=== PATIENT | male | born 1970 | race Caucasian/White ===

== ENCOUNTER 2021-11-01 07:48 | Emergency (ER) | payer OTHER, SELFPAY ==
[2021-11-01 07:56] VITALS: BP 127/88; PULSE 90; RESP 30; TEMP 35.9; O2SAT 97; BMI 23.7
[2021-11-01] MEDS: LORazepam 2 MG/ML INJ 1 MG IV (08:03)
[2021-11-01 08:04] VITALS: PULSE 92; O2SAT 98
[2021-11-01 08:08] LABS: Add Manual Diff / Slide Review NO; Basophils Absolute Auto 0 /uL (0-100); Basophils Percent Auto 0.2 % (0-2); Eosinophils Absolute Auto 200 /uL (0-450); Eosinophils Percent Auto 2.6 % (2-4); Hematocrit 45.7 % (41-53); Hemoglobin 15.8 g/dL (13.5-17.5); Lymphocytes Absolute Auto 3200 /uL (1100-4500); Mean Corpuscular HGB Conc 34.6 % (30-36); Mean Corpuscular Hemoglobin 31.4 PG (26-34); Mean Corpuscular Volume 90.7 fL (80-100); Monocytes Absolute Auto 800 /uL (0-900); Monocytes Percent Auto 9.9 % (3-14); Neutrophils Absolute Auto 4000 /uL (1500-7000); Neutrophils Percent Auto 48.3 % (50-75); Platelet Count 273 X10^3/uL (150-400); Red Blood Cell Count 5.03 X10^6/uL (4.5-5.9); Red Cell Distribution Width 13.8 % (11.6-14.8); White Blood Cell Count 8.2 X10^3/uL (4.5-11.0)
[2021-11-01 08:13] LABS: Alanine Aminotransferase 23 IU/L (<50); Albumin 4.8 g/dL (3.5-5.0); Albumin Globulin Ratio 1.4 (1.0-2.8); Alkaline Phosphatase 58 U/L (38-126); Aspartate Aminotransferase 36 IU/L (17-59); BUN Creatinine Ratio 10.4 (6-22); Bilirubin Total 0.9 mg/dL (0.2-1.3); Blood Urea Nitrogen 11 mg/dL (9-20); Calcium 9.8 mg/dL (8.4-10.2); Carbon Dioxide 19 mmol/L (22-32); Chloride 107 mmol/L (98-107); Estimated Glomerular Filt Rate > 60.0 mL/min (>60); Globulin 3.5 g/dL (1.7-4.1); Glucose 166 mg/dL (70-100); HEMOLYSIS < 15 (0-50); Potassium 3.4 mmol/L (3.4-5.1); Sodium 139 mmol/L (137-145); Total Protein 8.3 g/dL (6.3-8.2)
[2021-11-01 08:25] LABS: Troponin I < 0.012 ng/mL (0.01-0.034)
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
[2021-11-01 08:30] VITALS: PULSE 77; O2SAT 97
[2021-11-01 08:54] LABS: COVID19 - ADMIT (NP swab/PCR) Negative (Negative)
[2021-11-01 09:00] VITALS: PULSE 86; O2SAT 96
[2021-11-01] MEDS: diazePAM 5 MG TABLET PO (09:29)
[2021-11-01] MEDS: DEXAMETHASONE 10 MG/ML VIAL IV (09:29)
[2021-11-01 09:30] VITALS: PULSE 81; RESP 17; O2SAT 98
[2021-11-01 09:51] VITALS: BP 126/79; PULSE 85; RESP 19
== END 2021-11-01 09:54 | disposition home or self-care (01) ==
PROVIDERS: Emergency Provider Emergency Medicine; Family Provider Family Medicine; PCP Family Medicine
DX: F41.0 Panic disorder [episodic paroxysmal anxiety] (principal); M54.42 Lumbago with sciatica, left side; R00.0 Tachycardia, unspecified; Z20.822 Contact with and (suspected) exposure to COVID-19
CPT/HCPCS: 36415; 80053; 84484; 85025; 87635; 93005; 96374; 96375; 99284; C9803; J1100; J2060

== ENCOUNTER → 2021-12-14 08:00 | Outpatient (CLI) | payer OTHER, SELFPAY ==
[2021-12-14 08:31] LABS: Add Manual Diff / Slide Review NO; Basophils Absolute Auto 100 /uL (0-100); Basophils Percent Auto 1.2 % (0-2); Eosinophils Absolute Auto 100 /uL (0-450); Eosinophils Percent Auto 1.8 % (2-4); Hematocrit 44.8 % (41-53); Hemoglobin 15.7 g/dL (13.5-17.5); Lymphocytes Absolute Auto 1700 /uL (1100-4500); Lymphocytes Percent Auto 30.8 % (25-40); Mean Corpuscular HGB Conc 35.1 % (30-36); Mean Corpuscular Hemoglobin 31.5 PG (26-34); Mean Corpuscular Volume 89.6 fL (80-100); Monocytes Absolute Auto 500 /uL (0-900); Monocytes Percent Auto 9.4 % (3-14); Neutrophils Absolute Auto 3200 /uL (1500-7000); Neutrophils Percent Auto 56.8 % (50-75); Platelet Count 210 X10^3/uL (150-400); Red Blood Cell Count 4.99 X10^6/uL (4.5-5.9); Red Cell Distribution Width 13.3 % (11.6-14.8); White Blood Cell Count 5.6 X10^3/uL (4.5-11.0)
[2021-12-14 08:35] LABS: Cholesterol 262 mg/dL (140-199); HDL Cholesterol 50 mg/dL (40-60); LDL Cholesterol Calculated 192 mg/dL (<100); Triglycerides 98 mg/dL (35-150)
[2021-12-14 08:44] LABS: Erythrocyte Sedimentation Rate 1 MM/HR (0-15)
[2021-12-14 08:52] LABS: Vitamin D 25 Hydroxy (D3) 35.5 ng/mL (30.0-100.0)
[2021-12-14 08:54] LABS: Free T3, Triiodothyronine Free 3.24 pg/mL (2.77-5.27); Free T4, Direct Thyroxine 0.91 ng/dL (0.78-2.19)
[2021-12-14 09:06] LABS: Carcinoembryonic Antigen 1.6 ng/mL (0.1-3.0)
[2021-12-14 09:08] LABS: Thyroid Stimulating Hormone 4.14 uIU/mL (0.47-4.68)
[2021-12-14 09:25] LABS: Vitamin B12 464 pg/mL (239-931)
[2021-12-15 07:08] LABS: Homocysteine 14.5 umol/L (0.0-14.5)
== END ==
PROVIDERS: Family Provider Family Medicine; PCP Family Medicine; Referring Provider Family Medicine; Visit Provider Family Medicine
DX: M25.50 Pain in unspecified joint (principal); Z13.220 Encounter for screening for lipoid disorders
CPT/HCPCS: 36415; 80061; 82306; 82378; 82607; 83090; 84439; 84443; 84481; 85025; 85651

== ENCOUNTER → 2022-01-27 10:36 | Outpatient (CLI) | payer OTHER, SELFPAY ==
--- NOTE | 2022-01-27 10:37 | DI.RAD.S_ITS ---
PROCEDURE: XR LUMBAR SPINE MIN 4V INDICATIONS: BACK PAIN TECHNIQUE: 5 views of the lumbar spine were acquired, including bilateral oblique views. COMPARISON: None. FINDINGS: Bones: 5 nonrib-bearing vertebrae are present. 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 Non rudimentary S1-S2 disc. There is normal bony alignment. No vertebral body compression fractures. No suspicious bony lesions. Mild degenerative disc changes noted throughout the lumbar spine. Mild L3-L4, L4-L5 and L5-S1 facet arthropathy. Soft tissues: Overlying bowel gas pattern is normal. No suspicious soft tissue calcifications. Oblique images: No pars defects. IMPRESSION: 1. Multilevel degenerative disc disease. 2. Multilevel facet arthropathy. 3. No fracture. No acute osseous lesion. If symptoms and/or clinical suspicion for pathology persists, evaluation with MRI should be considered for further assessment. Dictated by: Hanna Arreola MD, PhD on 01/27/2022 at 13:25 Approved by: Hanna Arreola MD, PhD on 01/27/2022 at 13:27
== END ==
PROVIDERS: Family Provider Family Medicine; PCP Family Medicine; Referring Provider Physical Medicine & Rehabilitation; Visit Provider Physical Medicine & Rehabilitation
DX: M51.36 Other intervertebral disc degeneration, lumbar region (principal); M47.816 Spondylosis without myelopathy or radiculopathy, lumbar region; M47.817 Spondylosis without myelopathy or radiculopathy, lumbosacral region; M54.50 Low back pain, unspecified
CPT/HCPCS: 72110

== ENCOUNTER 2022-04-21 09:00 | Outpatient (RCR) | payer OTHER, SELFPAY ==
--- NOTE | 2022-03-23 12:00 | PT.OIE ---
Current Diagnoses Lesion of sciatic nerve, left lower limb (03/23/22) Sciatica, left side (03/23/22) Low back pain, unspecified (03/23/22) Visit Care Team Role Provider Type Maria Guadalupe Crawford MD Attending Provider Physician Family Provider Primary Care Provider Referring Provider Specialty: Family Practice Address: [address] [place] [address], [id number] Email: [email or web address] Physical Therapy Initial Evaluation PT-OP-A Visit Information Start: 03/23/22 10:41 Freq: Status: Active Protocol: Document 03/23/22 09:45 DCW (Rec: 03/23/22 10:42 DCW [id number]) Out-Patient Physical Therapy Visit Information Visit Information Visit Type Initial Evaluation Visit Start Time 09:45 Visit Stop Time 10:30 Total Visit Minutes 45 Visit Number 1 Number of GOLF CADDY Visits 0 Evaluation Information Evaluation Date 03/23/22 PT-OP-B Current Condition Start: 03/23/22 10:41 Freq: Status: Active Protocol: Document 03/23/22 09:45 DCW (Rec: 03/23/22 11:04 DCW [id number]) Current Condition History of Current Condition Onset Date 11/01/21 Current Complaints Left LE radicular pain, tingling, weakness History of Current Condition Pt is a 51 year old male presenting to skilled therapy with a 4.5 month history of radicular left leg pain. Pt reports he woke up 11/01/21 with intense pain in posterior hip radiating down his left leg. Pain worsened until pt was able to get to the ED, where he was mainly treated for a pain attack he began having due to the severe pain. S?ce that time, he has been experiencing numbness and tingling in his left foot, mainly around the ball of his foot and his toes, as well as pain along his lateral left calf, and his left posterior hip. Pt reports his left butt sags more now, and he is noticing decreased left LE muscle tone. Pt reports he becomes more uncomfortable with extended sitting or standing, and his usual shoes have been much more uncomfortable recently on his left foot. Notes his insurance has so far denied MRI requests. Prior Treatments and Tests Lumbar x-ray: IMPRESSION: 1. Multilevel degenerative disc disease. 2. Multilevel facet arthropathy. 3. No fracture. No acute osseous lesion. If symptoms and/or clinical suspicion for pathology persists, evaluation with MRI should be considered for further assessment. per Hanna Arreola MD, PhD on 01/27/2022 Treatment Goals Patient/Caregiver Goals Decrease numbness/tingling and improve muscle tone PT-OP-C Subjective Start: 03/23/22 10:41 Freq: Status: Active Protocol: Document 03/23/22 09:45 DCW (Rec: 03/23/22 11:04 DCW [id number]) OP-PT Subjective Patient Comments Patient Comments I've had some general low back pain in the past, but nothing like this. Patient Questionnaires Oswestry Low Back Index Oswestry Score 10/50 = 20% OP-PT Pain Assessment Pain Assessment Grid Paper Pain Assessment Grid Completed Yes Location Left Posterior Hip Intensity 4 Description Radiating,Tingling Radiating Location Radiates down to lateral thigh /calf (2/10) and toes (6/10) PT-OP-F Manual Assessment Start: 03/23/22 10:41 Freq: Status: Active Protocol: Document 03/23/22 09:45 DCW (Rec: 03/23/22 11:04 DCW [id number]) Manual Assessments Soft Tissue Assessment Soft Tissue Mobility Assessment Severe tone left piriformis with tenderness to palpation 3 /4: wincing and withdraw. Moderate tone left fibularis with tenderness to palpation 2 /4: pain with wincing. Joint Mobility Assessment Joint Mobility Assessment No notable deficiencies with joint mobility of lumbar spine or bilateral hips PT-OP-H Neuro Start: 03/23/22 11:04 Freq: Status: Active Protocol: Document 03/23/22 09:45 DCW (Rec: 03/23/22 11:06 DCW [id number]) Sensation Evaluation Gross Sensation Gross Sensation Left LE Impaired Sensation Description Tingling,Pins & [place] Dermatome Impairments L5 Location Details Left Distal Foot Light Touch Impaired Protective Sensation Intact/Normal PT-OP-K Range of Motion Start: 03/23/22 10:41 Freq: Status: Active Protocol: Document 03/23/22 09:45 DCW (Rec: 03/23/22 10:46 DCW [id number]) Lumbar Spine Range of Motion Lumbar Spine Active Percentage Testing Position Standing Flexion 100 Extension 100 Lateral Flexion Left 100 Lateral Flexion Right 100 Comments Mild discomfort with left lateral flexion PT-OP-L Special Tests Start: 03/23/22 10:41 Freq: Status: Active Protocol: Document 03/23/22 09:45 DCW (Rec: 03/23/22 10:46 DCW [id number]) Special Tests Lumbar Spine Special Tests Straight Leg Raise Test Results Negative Standing Flexion Test Results Negative Slump Test Results Positive L Manual Traction Test Results Negative Compression Test Results Negative A-P Shearing Test Results Negative Hip Special Tests Posterior Labral Test Test Results Negative Piriformis Test Results ++++ Left JANET Test Results Negative PT-OP-M Strength Start: 03/23/22 10:41 Freq: Status: Active Protocol: Document 03/23/22 09:45 DCW (Rec: 03/23/22 10:46 DCW [id number]) Hip Strength Hip Manual Muscle Testing Right Flexion (L2) 5 Normal Abduction 5 Normal Adduction 5 Normal External Rotation 5 Normal Internal Rotation 5 Normal Left Flexion (L2) 4+ Good+ Abduction 5 Normal Adduction 5 Normal External Rotation 4 Good Internal Rotation 4+ Good+ Knee Strength Knee Manual Muscle Testing Right Flexion (S2) 5 Normal Extension (L3) 5 Normal Left Flexion (S2) 5 Normal Extension (L3) 4+ Good+ Ankle/Foot Strength Ankle and Foot Manual Muscle Testing Right Dorsiflexion (L4) 5 Normal Plantarflexion (S1) 5 Normal Left Dorsiflexion (L4) 4 Good Plantarflexion (S1) 4+ Good+ Toe Strength Toe Manual Muscle Testing Right Great Toe Flexion 5 Normal Left Great Toe Extension 4 Good PT-OP-T Assessment and Plan Start: 03/23/22 10:41 Freq: Status: Active Protocol: Document 03/23/22 09:45 DCW (Rec: 03/23/22 12:00 DCW [id number]) Physical Therapy Assessment Rehab Potential Rehabilitation Potential Good Evaluation Complexity Number of Personal Factors/Comorbidities 1-2 Number of Body Systems Impaired 3 Clinical Presentation at Evaluation Evolving Impairments Impairments Activity Tolerance,Functional Activities,Functional Mobility ,Pain,Sensation,Soft Tissue Mobility,Strength,Tone Goals Two Impairment Pt reports constant tingling/ decreased sensation in left foot Fiberline Supervisor Goal (LTG) Pt to report left foot sensation WNL for one full week to allow for improve gait and stability. LTG Duration 05/23/22 One Impairment Pt does not have an appropriate home exercise program Short Term Goal (STG) Pt to be independent and compliant with an appropriate HEP STG Duration 04/23/22 Assessment Summary Assessment Pt presents with signs and symptoms consistent with piriformis syndrome. All lumbar testing appears to be negative today, however pt has strongly positive symptoms with palpation and stretching of his left piriformis. Pt displays some general left LE weakness, notes it worsens with fatigue, and he has been catching is foot more frequently, along with his constant numbness and tingling . Reviewed piriformis stretching today for an HEP, pt should additionally benefit from skilled therapy focusing on STM, strengthening, and continued stretching of his left LE and hip. Physical Therapy Plan Frequency and Duration Frequency of Treatment 2x/Week Duration of Treatment Two months Plan of Care Start Date 03/23/22 Plan of Care End Date 05/23/22 Therapeutic Interventions Therapeutic Interventions Aquatic Therapy,Home Exercise Program,Joint Mobilizations, Manual Therapy,Neuromuscular Re-education,Patient/Caregiver Education,Self-Care/Home Management,Soft Tissue Mobilization,Therapeutic Activities,Therapeutic Exercises Modalities Cold Pack/Ice Massage,Electric Stimulation,Hot Packs, Ultrasound Next Visit Focus/Plan Next Note Type Treatment Note Next Visit Plan STM, strengthening, flexibility
--- NOTE | 2022-03-23 12:01 | PT.OPPOC ---
Physical, Occupational & Speech Therapy At [facility] Current Diagnoses Lesion of sciatic nerve, left lower limb (03/23/22) Sciatica, left side (03/23/22) Low back pain, unspecified (03/23/22) Visit Care Team Role Provider Type Maria Guadalupe Crawford MD Attending Provider Physician Family Provider Primary Care Provider Referring Provider Specialty: Family Practice Address: [address] [place] [address], [place], [address] Email: [email or web address] Plan Of Care PT-OP-T Assessment and Plan Start: 03/23/22 10:41 Freq: Status: Active Protocol: Document 03/23/22 09:45 DCW (Rec: 03/23/22 12:00 DCW [id number]) Physical Therapy Assessment Rehab Potential Rehabilitation Potential Good Evaluation Complexity Number of Personal Factors/Comorbidities 1-2 Number of Body Systems Impaired 3 Clinical Presentation at Evaluation Evolving Impairments Impairments Activity Tolerance,Functional Activities,Functional Mobility ,Pain,Sensation,Soft Tissue Mobility,Strength,Tone Goals Two Impairment Pt reports constant tingling/ decreased sensation in left foot Speedboat Operator Goal (LTG) Pt to report left foot sensation WNL for one full week to allow for improve gait and stability. LTG Duration 05/23/22 One Impairment Pt does not have an appropriate home exercise program Short Term Goal (STG) Pt to be independent and compliant with an appropriate HEP STG Duration 04/23/22 Assessment Summary Assessment Pt presents with signs and symptoms consistent with piriformis syndrome. All lumbar testing appears to be negative today, however pt has strongly positive symptoms with palpation and stretching of his left piriformis. Pt displays some general left LE weakness, notes it worsens with fatigue, and he has been catching is foot more frequently, along with his constant numbness and tingling . Reviewed piriformis stretching today for an HEP, pt should additionally benefit from skilled therapy focusing on STM, strengthening, and continued stretching of his left LE and hip. Physical Therapy Plan Frequency and Duration Frequency of Treatment 2x/Week Duration of Treatment Two months Plan of Care Start Date 03/23/22 Plan of Care End Date 05/23/22 Therapeutic Interventions Therapeutic Interventions Aquatic Therapy,Home Exercise Program,Joint Mobilizations, Manual Therapy,Neuromuscular Re-education,Patient/Caregiver Education,Self-Care/Home Management,Soft Tissue Mobilization,Therapeutic Activities,Therapeutic Exercises Modalities Cold Pack/Ice Massage,Electric Stimulation,Hot Packs, Ultrasound Next Visit Focus/Plan Next Note Type Treatment Note Next Visit Plan STM, strengthening, flexibility Plan of Care Dates Plan of Care Start Date 03/23/22 Plan of Care End Date 05/23/22 Electronically Signed by: Tye Henry, PT 03/23/22 2307 If you are in agreement with this Plan of Care, please return a signed and dated copy. I have reviewed this Plan of Care and certify that the skilled therapy services above are required to meet the patient?s needs. Physician Signature Date Printed Name and Credentials Clinical Instructor Signature Printed Name and Credentials
--- NOTE | 2022-03-30 12:25 | PT.OTN ---
Current Diagnoses Lesion of sciatic nerve, left lower limb (03/30/22) Sciatica, left side (03/30/22) Low back pain, unspecified (03/30/22) Physical Therapy Treatment Note PT-OP-A Visit Information Start: 03/23/22 10:41 Freq: Status: Active Protocol: Document 03/30/22 08:50 AW (Rec: 03/30/22 09:47 AW [id number]) Out-Patient Physical Therapy Visit Information Visit Information Visit Type Treatment Note Visit Start Time 09:00 Visit Stop Time 09:45 Total Visit Minutes 45 Visit Number 2 Number of UTILITY MANAGER Visits 0 Evaluation Information Evaluation Date 03/23/22 PT-OP-B Current Condition Start: 03/23/22 10:41 Freq: Status: Active Protocol: Document 03/23/22 09:45 DCW (Rec: 03/23/22 11:04 DCW [id number]) Current Condition History of Current Condition Onset Date 11/01/21 Current Complaints Left LE radicular pain, tingling, weakness History of Current Condition Pt is a 51 year old male presenting to skilled therapy with a 4.5 month history of radicular left leg pain. Pt reports he woke up 11/01/21 with intense pain in posterior hip radiating down his left leg. Pain worsened until pt was able to get to the ED, where he was mainly treated for a pain attack he began having due to the severe pain. S?ce that time, he has been experiencing numbness and tingling inhis left foot, mainly around the ball of his foot and his toes, as well as pain along his lateral left calf, and his left posterior hip. Pt reports his left butt sags more now, and he is noticing decreased left LE muscle tone. Pt reports he becomes more uncomfortable with extended sitting or standing, and his usual shoes have been much more uncomfortable recently on his left foot. Notes his insurance has so far denied MRI requests. Prior Treatments and Tests Lumbar x-ray: IMPRESSION: 1. Multilevel degenerative disc disease. 2. Multilevel facet arthropathy. 3. No fracture. No acute osseous lesion. If symptoms and/or clinical suspicion for pathology persists, evaluation with MRI should be considered for further assessment. per Hanna Arreola MD, PhD on 01/27/2022 Treatment Goals Patient/Caregiver Goals Decrease numbness/tingling and improve muscle tone PT-OP-C Subjective Start: 03/23/22 10:41 Freq: Status: Active Protocol: Document 03/30/22 08:50 AW (Rec: 03/30/22 09:47 AW [id number]) OP-PT Subjective Patient Comments Patient Comments I've been doing the stretches and taking a fair amount of ibuprofen which seems to help. Sometimes the stretches make the foot feel hot instead of just numb PT-OP-F Manual Assessment Start: 03/23/22 10:41 Freq: Status: Active Protocol: Document 03/23/22 09:45 DCW (Rec: 03/23/22 11:04 DCW [id number]) Manual Assessments Soft Tissue Assessment Soft Tissue Mobility Assessment Severe tone left piriformis with tenderness to palpation 3 /4: wincing and withdraw. Moderate tone left fibularis with tenderness to palpation 2 /4: pain with wincing. Joint Mobility Assessment Joint Mobility Assessment No notable deficiencies with joint mobility of lumbar spine or bilateral hips PT-OP-H Neuro Start: 03/23/22 11:04 Freq: Status: Active Protocol: Document 03/23/22 09:45 DCW (Rec: 03/23/22 11:06 DCW [id number]) Sensation Evaluation Gross Sensation Gross Sensation Left LE Impaired Sensation Description Tingling,Pins & [place] Dermatome Impairments L5 Location Details Left Distal Foot Light Touch Impaired Protective Sensation Intact/Normal PT-OP-K Range of Motion Start: 03/23/22 10:41 Freq: Status: Active Protocol: Document 03/23/22 09:45 DCW (Rec: 03/23/22 10:46 DCW [id number]) Lumbar Spine Range of Motion Lumbar Spine Active Percentage Testing Position Standing Flexion 100 Extension 100 Lateral Flexion Left 100 Lateral Flexion Right 100 Comments Mild discomfort with left lateral flexion PT-OP-L Special Tests Start: 03/23/22 10:41 Freq: Status: Active Protocol: Document 03/23/22 09:45 DCW (Rec: 03/23/22 10:46 DCW [id number]) Special Tests Lumbar Spine Special Tests Straight Leg Raise Test Results Negative Standing Flexion Test Results Negative Slump Test Results Positive L Manual Traction Test Results Negative Compression Test Results Negative A-P Shearing Test Results Negative Hip Special Tests Posterior Labral Test Test Results Negative Piriformis Test Results ++++ Left JANET Test Results Negative PT-OP-M Strength Start: 03/23/22 10:41 Freq: Status: Active Protocol: Document 03/23/22 09:45 DCW (Rec: 03/23/22 10:46 DCW [id number]) Hip Strength Hip Manual Muscle Testing Right Flexion (L2) 5 Normal Abduction 5 Normal Adduction 5 Normal External Rotation 5 Normal Internal Rotation 5 Normal Left Flexion (L2) 4+ Good+ Abduction 5 Normal Adduction 5 Normal External Rotation 4 Good Internal Rotation 4+ Good+ Knee Strength Knee Manual Muscle Testing Right Flexion (S2) 5 Normal Extension (L3) 5 Normal Left Flexion (S2) 5 Normal Extension (L3) 4+ Good+ Ankle/Foot Strength Ankle and Foot Manual Muscle Testing Right Dorsiflexion (L4) 5 Normal Plantarflexion (S1) 5 Normal Left Dorsiflexion (L4) 4 Good Plantarflexion (S1) 4+ Good+ Toe Strength Toe Manual Muscle Testing Right Great Toe Flexion 5 Normal Left Great Toe Extension 4 Good PT-OP-Q Treatments Start: 03/23/22 10:41 Freq: Status: Active Protocol: Document 03/30/22 08:50 AW (Rec: 03/30/22 09:47 AW [id number]) Cardio Equipment Recumbent Bicycle Duration (Minutes) 5 Resistance 5 Seat Position 6 Other 0 Therapeutic Exercises Supine Exercises HS stretch Supine Exercise Name HS stretch Side left Resistance manual Reps/Minutes 30 SH x 3 bridge Supine Exercise Name bridge Reps/Minutes 5SH x 10 Comments HEP SLR Supine Exercise Name SLR Side left Reps/Minutes neutral x 10; ER x 10; IR x 10 Comments HEP sciatic nerve glide Supine Exercise Name sciatic nerve glide Side left Equipment Used SLR w/ ankle pump Reps/Minutes 60' x 2 piriformis stretch Supine Exercise Name piriformis stretch Side left Resistance opp leg straight, pull knee toward R shoulder Reps/Minutes 60' x 2 Sidelying Exercises clam/reverse clam Sidelying Exercise Name reverse clam only Side left Resistance AROM Reps/Minutes 2x10 Comments HEP Manual Therapy Treatment Soft Tissue Mobilization L fibularis Body Location L fibularis Mobilization Type Rolling,Strumming Intensity/Depth Moderate Body Position Supine external rotators Body Location hip ERs Mobilization Type Rolling,Strumming,Sustained Pressure,Trigger Point Release Intensity/Depth Moderate Body Position Sidelying PT-OP-T Assessment and Plan Start: 03/23/22 10:41 Freq: Status: Active Protocol: Document 03/30/22 08:50 AW (Rec: 03/30/22 09:47 AW [id number]) Physical Therapy Assessment Goals Two Impairment Pt reports constant tingling/ decreased sensation in left foot Skilled Nursing Goal (LTG) Pt to report left foot sensation WNL for one full week to allow for improve gait and stability. LTG Duration 05/23/22 One Impairment Pt does not have an appropriate home exercise program Short Term Goal (STG) Pt to be independent and compliant with an appropriate HEP STG Duration 04/23/22 Assessment Summary Assessment Pt responds well to education and ther ex. Continued with STM, hip mobility, and gentle hip strengthening as a foundation further strength training. Physical Therapy Plan Frequency and Duration Frequency of Treatment 2x/Week Duration of Treatment Two months Plan of Care Start Date 03/23/22 Plan of Care End Date 05/23/22 Therapeutic Interventions Therapeutic Interventions Aquatic Therapy,Home Exercise Program,Joint Mobilizations, Manual Therapy,Neuromuscular Re-education,Patient/Caregiver Education,Self-Care/Home Management,Soft Tissue Mobilization,Therapeutic Activities,Therapeutic Exercises Modalities Cold Pack/Ice Massage,Electric Stimulation,Hot Packs, Ultrasound Next Visit Focus/Plan Next Note Type Treatment Note Next Visit Plan STM, strengthening (progress hip ext, IR, and abd strength) , flexibility,
--- NOTE | 2022-04-07 11:39 | PT.OTN ---
Current Diagnoses Sciatica, left side (04/07/22) Low back pain, unspecified (04/07/22) Physical Therapy Treatment Note PT-OP-A Visit Information Start: 03/23/22 10:41 Freq: Status: Active Protocol: Document 04/07/22 08:35 AW (Rec: 04/07/22 11:39 AW [id number]) Out-Patient Physical Therapy Visit Information Visit Information Visit Type Treatment Note Visit Start Time 09:45 Visit Stop Time 10:30 Total Visit Minutes 45 Visit Number 3 Number of BUSINESS ANALYTICS SPECIALIST Visits 0 Evaluation Information Evaluation Date 03/23/22 PT-OP-B Current Condition Start: 03/23/22 10:41 Freq: Status: Active Protocol: Document 03/23/22 09:45 DCW (Rec: 03/23/22 11:04 DCW [id number]) Current Condition History of Current Condition Onset Date 11/01/21 Current Complaints Left LE radicular pain, tingling, weakness History of Current Condition Pt is a 51 year old male presenting to skilled therapy with a 4.5 month history of radicular left leg pain. Pt reports he woke up 11/01/21 with intense pain in posterior hip radiating down his left leg. Pain worsened until pt was able to get to the ED, where he was mainly treated for a pain attack he began having due to the severe pain. S?ce that time, he has been experiencing numbness and tingling inhis left foot, mainly around the ball of his foot and his toes, as well as pain along his lateral left calf, and his left posterior hip. Pt reports his left butt sags more now, and he is noticing decreased left LE muscle tone. Pt reports he becomes more uncomfortable with extended sitting or standing, and his usual shoes have been much more uncomfortable recently on his left foot. Notes his insurance has so far denied MRI requests. Prior Treatments and Tests Lumbar x-ray: IMPRESSION: 1. Multilevel degenerative disc disease. 2. Multilevel facet arthropathy. 3. No fracture. No acute osseous lesion. If symptoms and/or clinical suspicion for pathology persists, evaluation with MRI should be considered for further assessment. per Hanna Arreola MD, PhD on 01/27/2022 Treatment Goals Patient/Caregiver Goals Decrease numbness/tingling and improve muscle tone PT-OP-C Subjective Start: 03/23/22 10:41 Freq: Status: Active Protocol: Document 04/07/22 08:35 AW (Rec: 04/07/22 11:39 AW [id number]) OP-PT Subjective Patient Comments Patient Comments Still having tingling in left foot. Wears slippers a lot at home. Slippers are more comfortable. Regular shoes cause more symptoms in foot even though he has worn these shoes for a long time. Going to Dr. Perez at end march. Has $60 copay and does not want to schedule more than weekly PT visits at this time. PT-OP-F Manual Assessment Start: 03/23/22 10:41 Freq: Status: Active Protocol: Document 03/23/22 09:45 DCW (Rec: 03/23/22 11:04 DCW [id number]) Manual Assessments Soft Tissue Assessment Soft Tissue Mobility Assessment Severe tone left piriformis with tenderness to palpation 3 /4: wincing and withdraw. Moderate tone left fibularis with tenderness to palpation 2 /4: pain with wincing. Joint Mobility Assessment Joint Mobility Assessment No notable deficiencies with joint mobility of lumbar spine or bilateral hips PT-OP-H Neuro Start: 03/23/22 11:04 Freq: Status: Active Protocol: Document 03/23/22 09:45 DCW (Rec: 03/23/22 11:06 DCW [id number]) Sensation Evaluation Gross Sensation Gross Sensation Left LE Impaired Sensation Description Tingling,Pins & [place] Dermatome Impairments L5 Location Details Left Distal Foot Light Touch Impaired Protective Sensation Intact/Normal PT-OP-K Range of Motion Start: 03/23/22 10:41 Freq: Status: Active Protocol: Document 03/23/22 09:45 DCW (Rec: 03/23/22 10:46 DCW [id number]) Lumbar Spine Range of Motion Lumbar Spine Active Percentage Testing Position Standing Flexion 100 Extension 100 Lateral Flexion Left 100 Lateral Flexion Right 100 Comments Mild discomfort with left lateral flexion PT-OP-L Special Tests Start: 03/23/22 10:41 Freq: Status: Active Protocol: Document 03/23/22 09:45 DCW (Rec: 03/23/22 10:46 DCW [id number]) Special Tests Lumbar Spine Special Tests Straight Leg Raise Test Results Negative Standing Flexion Test Results Negative Slump Test Results Positive L Manual Traction Test Results Negative Compression Test Results Negative A-P Shearing Test Results Negative Hip Special Tests Posterior Labral Test Test Results Negative Piriformis Test Results ++++ Left JANET Test Results Negative PT-OP-M Strength Start: 03/23/22 10:41 Freq: Status: Active Protocol: Document 03/23/22 09:45 DCW (Rec: 03/23/22 10:46 DCW [id number]) Hip Strength Hip Manual Muscle Testing Right Flexion (L2) 5 Normal Abduction 5 Normal Adduction 5 Normal External Rotation 5 Normal Internal Rotation 5 Normal Left Flexion (L2) 4+ Good+ Abduction 5 Normal Adduction 5 Normal External Rotation 4 Good Internal Rotation 4+ Good+ Knee Strength Knee Manual Muscle Testing Right Flexion (S2) 5 Normal Extension (L3) 5 Normal Left Flexion (S2) 5 Normal Extension (L3) 4+ Good+ Ankle/Foot Strength Ankle and Foot Manual Muscle Testing Right Dorsiflexion (L4) 5 Normal Plantarflexion (S1) 5 Normal Left Dorsiflexion (L4) 4 Good Plantarflexion (S1) 4+ Good+ Toe Strength Toe Manual Muscle Testing Right Great Toe Flexion 5 Normal Left Great Toe Extension 4 Good PT-OP-Q Treatments Start: 03/23/22 10:41 Freq: Status: Active Protocol: Document 04/07/22 08:35 AW (Rec: 04/07/22 11:39 AW [id number]) Cardio Equipment Recumbent Bicycle Duration (Minutes) 5 Resistance 5 Seat Position 6 Other 0 Therapeutic Exercises Supine Exercises HS stretch Supine Exercise Name HS stretch Side left Resistance with strap Reps/Minutes 30 SH x 4 Comments hip flex and add; good response; HEP sciatic nerve glide Supine Exercise Name sciatic nerve glide Side left Equipment Used SLR w/ ankle pump Reps/Minutes 60' x 2 Comments trialed in sitting but too irritating; continue with supine for HEP piriformis stretch Supine Exercise Name piriformis stretch Side left Resistance opp leg straight, pull knee toward R shoulder Reps/Minutes 60' x 2 Sidelying Exercises SL hip abduction Sidelying Exercise Name SL hip abduction Side left Resistance AROM Reps/Minutes 2x15 Comments HEP Sitting Exercises resisted inversion Sitting Exercise Name resisted inversion Side left Resistance TB1 Reps/Minutes 2x20 Comments HEP Manual Therapy Treatment Soft Tissue Mobilization L fibularis Body Location L fibularis Mobilization Type Rolling,Strumming Intensity/Depth Moderate Body Position Supine Comments With rolling pin. Educated pt to self mob at home with rolling pin as tolerated external rotators Body Location hip ERs Mobilization Type Rolling,Strumming,Sustained Pressure,Trigger Point Release Intensity/Depth Moderate Body Position Sidelying Comments Instructed pt in self-STM with tennis ball in supine or at wall. Joint Mobilizations L hip Joint L hip Comments overpressure into IR; contract /relax Self-Care/Home Management Treatment Education Patient Education Home Exercise Program Other Education Added SL hip abduction, HS stretch with strap, resisted ankle inversion. PT-OP-T Assessment and Plan Start: 03/23/22 10:41 Freq: Status: Active Protocol: Document 04/07/22 08:35 AW (Rec: 04/07/22 11:39 AW [id number]) Physical Therapy Assessment Goals Two Impairment Pt reports constant tingling/ decreased sensation in left foot Ordnance Truck Installation Supervisor Goal (LTG) Pt to report left foot sensation WNL for one full week to allow for improve gait and stability. LTG Duration 05/23/22 One Impairment Pt does not have an appropriate home exercise program Short Term Goal (STG) Pt to be independent and compliant with an appropriate HEP STG Duration 04/23/22 Assessment Summary Assessment Pt describes feeling as if his forefoot is wrapped in layers of bubble wrap. This sensation increases with plantar flexion and with eversion. Instructed pt in hamstring stretch (hip flexion + adduction) and added resisted ankle inversion for home program. Pt has barrier of $60 copay for PT and wishes to continue at once weekly for now. He will be seen by pain clinic later this month. Physical Therapy Plan Frequency and Duration Frequency of Treatment 2x/Week Duration of Treatment Two months Plan of Care Start Date 03/23/22 Plan of Care End Date 05/23/22 Therapeutic Interventions Therapeutic Interventions Aquatic Therapy,Home Exercise Program,Joint Mobilizations, Manual Therapy,Neuromuscular Re-education,Patient/Caregiver Education,Self-Care/Home Management,Soft Tissue Mobilization,Therapeutic Activities,Therapeutic Exercises Modalities Cold Pack/Ice Massage,Electric Stimulation,Hot Packs, Ultrasound Next Visit Focus/Plan Next Note Type Treatment Note Next Visit Plan STM, strengthening (progress hip ext, IR, and abd strength) , flexibility. Follow up on self-STM
--- NOTE | 2022-04-14 12:57 | PT.OTN ---
Current Diagnoses Sciatica, left side (04/14/22) Low back pain, unspecified (04/14/22) Physical Therapy Treatment Note PT-OP-A Visit Information Start: 03/23/22 10:41 Freq: Status: Active Protocol: Document 04/14/22 08:57 AW (Rec: 04/14/22 09:47 AW [id number]) Out-Patient Physical Therapy Visit Information Visit Information Visit Type Treatment Note Visit Start Time 09:00 Visit Stop Time 09:45 Total Visit Minutes 45 Visit Number 4 Number of ACUTE CARE ASSISTANT Visits 0 Evaluation Information Evaluation Date 03/23/22 PT-OP-B Current Condition Start: 03/23/22 10:41 Freq: Status: Active Protocol: Document 03/23/22 09:45 DCW (Rec: 03/23/22 11:04 DCW [id number]) Current Condition History of Current Condition Onset Date 11/01/21 Current Complaints Left LE radicular pain, tingling, weakness History of Current Condition Pt is a 51 year old male presenting to skilled therapy with a 4.5 month history of radicular left leg pain. Pt reports he woke up 11/01/21 with intense pain in posterior hip radiating down his left leg. Pain worsened until pt was able to get to the ED, where he was mainly treated for a pain attack he began having due to the severe pain. S?ce that time, he has been experiencing numbness and tingling inhis left foot, mainly around the ball of his foot and his toes, as well as pain along his lateral left calf, and his left posterior hip. Pt reports his left butt sags more now, and he is noticing decreased left LE muscle tone. Pt reports he becomes more uncomfortable with extended sitting or standing, and his usual shoes have been much more uncomfortable recently on his left foot. Notes his insurance has so far denied MRI requests. Prior Treatments and Tests Lumbar x-ray: IMPRESSION: 1. Multilevel degenerative disc disease. 2. Multilevel facet arthropathy. 3. No fracture. No acute osseous lesion. If symptoms and/or clinical suspicion for pathology persists, evaluation with MRI should be considered for further assessment. per Hanna Arreola MD, PhD on 01/27/2022 Treatment Goals Patient/Caregiver Goals Decrease numbness/tingling and improve muscle tone PT-OP-C Subjective Start: 03/23/22 10:41 Freq: Status: Active Protocol: Document 04/14/22 08:57 AW (Rec: 04/14/22 09:47 AW [id number]) OP-PT Subjective Patient Comments Patient Comments No change in symptoms. Good engagement with HEP. Has appointment with Dr. Perez next week. Sitting long periods is defintely aggravating. Moving around helps. Patient Reported Progress Same PT-OP-F Manual Assessment Start: 03/23/22 10:41 Freq: Status: Active Protocol: Document 03/23/22 09:45 DCW (Rec: 03/23/22 11:04 DCW [id number]) Manual Assessments Soft Tissue Assessment Soft Tissue Mobility Assessment Severe tone left piriformis with tenderness to palpation 3 /4: wincing and withdraw. Moderate tone left fibularis with tenderness to palpation 2 /4: pain with wincing. Joint Mobility Assessment Joint Mobility Assessment No notable deficiencies with joint mobility of lumbar spine or bilateral hips PT-OP-H Neuro Start: 03/23/22 11:04 Freq: Status: Active Protocol: Document 03/23/22 09:45 DCW (Rec: 03/23/22 11:06 DCW [id number]) Sensation Evaluation Gross Sensation Gross Sensation Left LE Impaired Sensation Description Tingling,Pins & [place] Dermatome Impairments L5 Location Details Left Distal Foot Light Touch Impaired Protective Sensation Intact/Normal PT-OP-K Range of Motion Start: 03/23/22 10:41 Freq: Status: Active Protocol: Document 03/23/22 09:45 DCW (Rec: 03/23/22 10:46 DCW [id number]) Lumbar Spine Range of Motion Lumbar Spine Active Percentage Testing Position Standing Flexion 100 Extension 100 Lateral Flexion Left 100 Lateral Flexion Right 100 Comments Mild discomfort with left lateral flexion PT-OP-L Special Tests Start: 03/23/22 10:41 Freq: Status: Active Protocol: Document 03/23/22 09:45 DCW (Rec: 03/23/22 10:46 DCW [id number]) Special Tests Lumbar Spine Special Tests Straight Leg Raise Test Results Negative Standing Flexion Test Results Negative Slump Test Results Positive L Manual Traction Test Results Negative Compression Test Results Negative A-P Shearing Test Results Negative Hip Special Tests Posterior Labral Test Test Results Negative Piriformis Test Results ++++ Left JANET Test Results Negative PT-OP-M Strength Start: 03/23/22 10:41 Freq: Status: Active Protocol: Document 03/23/22 09:45 DCW (Rec: 03/23/22 10:46 DCW [id number]) Hip Strength Hip Manual Muscle Testing Right Flexion (L2) 5 Normal Abduction 5 Normal Adduction 5 Normal External Rotation 5 Normal Internal Rotation 5 Normal Left Flexion (L2) 4+ Good+ Abduction 5 Normal Adduction 5 Normal External Rotation 4 Good Internal Rotation 4+ Good+ Knee Strength Knee Manual Muscle Testing Right Flexion (S2) 5 Normal Extension (L3) 5 Normal Left Flexion (S2) 5 Normal Extension (L3) 4+ Good+ Ankle/Foot Strength Ankle and Foot Manual Muscle Testing Right Dorsiflexion (L4) 5 Normal Plantarflexion (S1) 5 Normal Left Dorsiflexion (L4) 4 Good Plantarflexion (S1) 4+ Good+ Toe Strength Toe Manual Muscle Testing Right Great Toe Flexion 5 Normal Left Great Toe Extension 4 Good PT-OP-Q Treatments Start: 03/23/22 10:41 Freq: Status: Active Protocol: Document 04/14/22 08:57 AW (Rec: 04/14/22 09:47 AW [id number]) Cardio Equipment Recumbent Bicycle Duration (Minutes) 4 Resistance 5 Seat Position 6 Other 0 Therapeutic Exercises Supine Exercises bridge Supine Exercise Name bridge Resistance TB2 at knees Reps/Minutes 5SH x 10 Comments HEP; cued ER at end range/hold piriformis stretch Supine Exercise Name piriformis stretch Side left Resistance opp leg straight, pull knee toward R shoulder Reps/Minutes 60' x 2 Sidelying Exercises clam/reverse clam Sidelying Exercise Name clamshell Side bilateral Resistance AROM Reps/Minutes 2x15, then 30 sec holds Comments HEP Sitting Exercises HS stretch Sitting Exercise Name HS stretch Side bilateral Equipment Used with active long-axis hip rotation Reps/Minutes alternative for HEP Standing Exercises closed chain ER Standing Exercise Name closed chain ER Side left Comments clinic only Self-Care/Home Management Treatment Education Patient Education Home Exercise Program Other Education Added clam AROM and bridge with band, prone press up PT-OP-T Assessment and Plan Start: 03/23/22 10:41 Freq: Status: Active Protocol: Document 04/14/22 08:57 AW (Rec: 04/14/22 09:47 AW [id number]) Physical Therapy Assessment Goals Two Impairment Pt reports constant tingling/ decreased sensation in left foot [employer] Goal (LTG) Pt to report left foot sensation WNL for one full week to allow for improve gait and stability. LTG Duration 05/23/22 One Impairment Pt does not have an appropriate home exercise program Short Term Goal (STG) Pt to be independent and compliant with an appropriate HEP STG Duration 04/23/22 Assessment Summary Assessment Pt notes being barefoot is nearly unbearable. He is most comfortable in his worn out house shoes which offer minimal support. His symptoms have been relatively constant but are much worse with extended sitting. Today, PT switched focus from tissue length toward strength and will reassess at next visit. Physical Therapy Plan Frequency and Duration Frequency of Treatment 2x/Week Duration of Treatment Two months Plan of Care Start Date 03/23/22 Plan of Care End Date 05/23/22 Therapeutic Interventions Therapeutic Interventions Aquatic Therapy,Home Exercise Program,Joint Mobilizations, Manual Therapy,Neuromuscular Re-education,Patient/Caregiver Education,Self-Care/Home Management,Soft Tissue Mobilization,Therapeutic Activities,Therapeutic Exercises Modalities Cold Pack/Ice Massage,Electric Stimulation,Hot Packs, Ultrasound Next Visit Focus/Plan Next Note Type Treatment Note Next Visit Plan Assess response to ER strengthening. STM, strengthening (progress hip ext, rotation, and abd strength), flexibility. Follow up on self-STM
--- NOTE | 2022-04-21 11:26 | PT.OTN ---
Current Diagnoses Sciatica, left side (04/21/22) Low back pain, unspecified (04/21/22) Physical Therapy Treatment Note PT-OP-A Visit Information Start: 03/23/22 10:41 Freq: Status: Active Protocol: Document 04/21/22 08:59 AW (Rec: 04/21/22 09:46 AW [id number]) Out-Patient Physical Therapy Visit Information Visit Information Visit Type Treatment Note Visit Start Time 09:00 Visit Stop Time 09:45 Total Visit Minutes 45 Visit Number 5 Number of MANUAL ARTS THERAPIST Visits 0 Evaluation Information Evaluation Date 03/23/22 PT-OP-B Current Condition Start: 03/23/22 10:41 Freq: Status: Active Protocol: Document 03/23/22 09:45 DCW (Rec: 03/23/22 11:04 DCW [id number]) Current Condition History of Current Condition Onset Date 11/01/21 Current Complaints Left LE radicular pain, tingling, weakness History of Current Condition Pt is a 51 year old male presenting to skilled therapy with a 4.5 month history of radicular left leg pain. Pt reports he woke up 11/01/21 with intense pain in posterior hip radiating down his left leg. Pain worsened until pt was able to get to the ED, where he was mainly treated for a pain attack he began having due to the severe pain. S?ce that time, he has been experiencing numbness and tingling inhis left foot, mainly around the ball of his foot and his toes, as well as pain along his lateral left calf, and his left posterior hip. Pt reports his left butt sags more now, and he is noticing decreased left LE muscle tone. Pt reports he becomes more uncomfortable with extended sitting or standing, and his usual shoes have been much more uncomfortable recently on his left foot. Notes his insurance has so far denied MRI requests. Prior Treatments and Tests Lumbar x-ray: IMPRESSION: 1. Multilevel degenerative disc disease. 2. Multilevel facet arthropathy. 3. No fracture. No acute osseous lesion. If symptoms and/or clinical suspicion for pathology persists, evaluation with MRI should be considered for further assessment. per Hanna Arreola MD, PhD on 01/27/2022 Treatment Goals Patient/Caregiver Goals Decrease numbness/tingling and improve muscle tone PT-OP-C Subjective Start: 03/23/22 10:41 Freq: Status: Active Protocol: Document 04/21/22 08:59 AW (Rec: 04/21/22 09:46 AW [id number]) OP-PT Subjective Patient Comments Patient Comments Not much change in symptoms. Pt saw Dr. Peerz this week who is going to order an MRI lumbar spine and proposing DUSTIN . Pt thinks he may like to codify HEP today PT-OP-F Manual Assessment Start: 03/23/22 10:41 Freq: Status: Active Protocol: Document 03/23/22 09:45 DCW (Rec: 03/23/22 11:04 DCW [id number]) Manual Assessments Soft Tissue Assessment Soft Tissue Mobility Assessment Severe tone left piriformis with tenderness to palpation 3 /4: wincing and withdraw. Moderate tone left fibularis with tenderness to palpation 2 /4: pain with wincing. Joint Mobility Assessment Joint Mobility Assessment No notable deficiencies with joint mobility of lumbar spine or bilateral hips PT-OP-H Neuro Start: 03/23/22 11:04 Freq: Status: Active Protocol: Document 03/23/22 09:45 DCW (Rec: 03/23/22 11:06 DCW [id number]) Sensation Evaluation Gross Sensation Gross Sensation Left LE Impaired Sensation Description Tingling,Pins & [place] Dermatome Impairments L5 Location Details Left Distal Foot Light Touch Impaired Protective Sensation Intact/Normal PT-OP-K Range of Motion Start: 03/23/22 10:41 Freq: Status: Active Protocol: Document 03/23/22 09:45 DCW (Rec: 03/23/22 10:46 DCW [id number]) Lumbar Spine Range of Motion Lumbar Spine Active Percentage Testing Position Standing Flexion 100 Extension 100 Lateral Flexion Left 100 Lateral Flexion Right 100 Comments Mild discomfort with left lateral flexion PT-OP-L Special Tests Start: 03/23/22 10:41 Freq: Status: Active Protocol: Document 03/23/22 09:45 DCW (Rec: 03/23/22 10:46 DCW [id number]) Special Tests Lumbar Spine Special Tests Straight Leg Raise Test Results Negative Standing Flexion Test Results Negative Slump Test Results Positive L Manual Traction Test Results Negative Compression Test Results Negative A-P Shearing Test Results Negative Hip Special Tests Posterior Labral Test Test Results Negative Piriformis Test Results ++++ Left JANET Test Results Negative PT-OP-M Strength Start: 03/23/22 10:41 Freq: Status: Active Protocol: Document 03/23/22 09:45 DCW (Rec: 03/23/22 10:46 DCW [id number]) Hip Strength Hip Manual Muscle Testing Right Flexion (L2) 5 Normal Abduction 5 Normal Adduction 5 Normal External Rotation 5 Normal Internal Rotation 5 Normal Left Flexion (L2) 4+ Good+ Abduction 5 Normal Adduction 5 Normal External Rotation 4 Good Internal Rotation 4+ Good+ Knee Strength Knee Manual Muscle Testing Right Flexion (S2) 5 Normal Extension (L3) 5 Normal Left Flexion (S2) 5 Normal Extension (L3) 4+ Good+ Ankle/Foot Strength Ankle and Foot Manual Muscle Testing Right Dorsiflexion (L4) 5 Normal Plantarflexion (S1) 5 Normal Left Dorsiflexion (L4) 4 Good Plantarflexion (S1) 4+ Good+ Toe Strength Toe Manual Muscle Testing Right Great Toe Flexion 5 Normal Left Great Toe Extension 4 Good PT-OP-Q Treatments Start: 03/23/22 10:41 Freq: Status: Active Protocol: Document 04/21/22 08:59 AW (Rec: 04/21/22 09:46 AW [id number]) Cardio Equipment Recumbent Bicycle Duration (Minutes) 4 Resistance 5 Seat Position 6 Other 0 Therapeutic Exercises Supine Exercises TrA Supine Exercise Name TrA - SL and DL march Equipment Used nylon belt under l/s for tactile feedback Standing Exercises paloff press Standing Exercise Name paloff press Resistance TB2 Other Exercises modified plank Other Exercise Name modified plank Comments HEP bird dog Other Exercise Name bird dog Reps/Minutes focused on hip extension primarily Comments HEP cat cow Other Exercise Name cat cow Comments HEP Self-Care/Home Management Treatment Education Patient Education Home Exercise Program Other Education Reviewed exercises from spine clinic. PT-OP-T Assessment and Plan Start: 03/23/22 10:41 Freq: Status: Active Protocol: Document 04/21/22 08:59 AW (Rec: 04/21/22 09:46 AW [id number]) Physical Therapy Assessment Goals Two Impairment Pt reports constant tingling/ decreased sensation in left foot [place] Goal (LTG) Pt to report left foot sensation WNL for one full week to allow for improve gait and stability. LTG Duration 05/23/22 One Impairment Pt does not have an appropriate home exercise program Short Term Goal (STG) Pt to be independent and compliant with an appropriate HEP STG Duration 04/23/22 Assessment Summary Assessment Pt saw spine clinic doctor yesterday who opined possible lumbar involvement. is ordering MRI and possible DUSTIN. Pt brought exercises from clinic to review for independent performance today. Pt wishes to cancel future PT appointments at this time. Will follow up in one month to check if pt would like to continue PT or discharge. Physical Therapy Plan Frequency and Duration Frequency of Treatment 2x/Week Duration of Treatment Two months Plan of Care Start Date 03/23/22 Plan of Care End Date 05/23/22 Therapeutic Interventions Therapeutic Interventions Aquatic Therapy,Home Exercise Program,Joint Mobilizations, Manual Therapy,Neuromuscular Re-education,Patient/Caregiver Education,Self-Care/Home Management,Soft Tissue Mobilization,Therapeutic Activities,Therapeutic Exercises Modalities Cold Pack/Ice Massage,Electric Stimulation,Hot Packs, Ultrasound Next Visit Focus/Plan Next Note Type Treatment Note
--- NOTE | 2022-08-08 11:59 | PT.OPDS ---
Current Diagnoses Sciatica, left side (04/21/22) Low back pain, unspecified (04/21/22) Visit Care Team Role Provider Type Maria Guadalupe Crawford MD Attending Provider Physician Family Provider Primary Care Provider Referring Provider Specialty: Family Practice Address: [address] [place] [address], [facility] [place], [address] Email: [email or web address] Visit Number Visit Number 5 Discharge Summary PT-OP-B Current Condition Start: 03/23/22 10:41 Freq: Status: Active Protocol: Document 03/23/22 09:45 DCW (Rec: 03/23/22 11:04 DCW [id number]) Current Condition History of Current Condition Onset Date 11/01/21 Current Complaints Left LE radicular pain, tingling, weakness History of Current Condition Pt is a 51 year old male presenting to skilled therapy with a 4.5 month history of radicular left leg pain. Pt reports he woke up 11/01/21 with intense pain in posterior hip radiating down his left leg. Pain worsened until pt was able to get to the ED, where he was mainly treated for a pain attack he began having due to the severe pain. S?ce that time, he has been experiencing numbness and tingling inhis left foot, mainly around the ball of his foot and his toes, as well as pain along his lateral left calf, and his left posterior hip. Pt reports his left butt sags more now, and he is noticing decreased left LE muscle tone. Pt reports he becomes more uncomfortable with extended sitting or standing, and his usual shoes have been much more uncomfortable recently on his left foot. Notes his insurance has so far denied MRI requests. Prior Treatments and Tests Lumbar x-ray: IMPRESSION: 1. Multilevel degenerative disc disease. 2. Multilevel facet arthropathy. 3. No fracture. No acute osseous lesion. If symptoms and/or clinical suspicion for pathology persists, evaluation with MRI should be considered for further assessment. per Hanna Arreola MD, PhD on 01/27/2022 Treatment Goals Patient/Caregiver Goals Decrease numbness/tingling and improve muscle tone PT-OP-C Subjective Start: 03/23/22 10:41 Freq: Status: Active Protocol: Document 04/21/22 08:59 AW (Rec: 04/21/22 09:46 AW [id number]) OP-PT Subjective Patient Comments Patient Comments Not much change in symptoms. Pt saw Dr. Perez this week who is going to order an MRI lumbar spine and proposing DUSTIN . Pt thinks he may like to codify HEP today PT-OP-F Manual Assessment Start: 03/23/22 10:41 Freq: Status: Active Protocol: Document 03/23/22 09:45 DCW (Rec: 03/23/22 11:04 DCW [id number]) Manual Assessments Soft Tissue Assessment Soft Tissue Mobility Assessment Severe tone left piriformis with tenderness to palpation 3 /4: wincing and withdraw. Moderate tone left fibularis with tenderness to palpation 2 /4: pain with wincing. Joint Mobility Assessment Joint Mobility Assessment No notable deficiencies with joint mobility of lumbar spine or bilateral hips PT-OP-H Neuro Start: 03/23/22 11:04 Freq: Status: Active Protocol: Document 03/23/22 09:45 DCW (Rec: 03/23/22 11:06 DCW [id number]) Sensation Evaluation Gross Sensation Gross Sensation Left LE Impaired Sensation Description Tingling,[place] [employer] [place] Dermatome Impairments L5 Location Details Left Distal Foot Light Touch Impaired Protective Sensation Intact/Normal PT-OP-K Range of Motion Start: 03/23/22 10:41 Freq: Status: Active Protocol: Document 03/23/22 09:45 DCW (Rec: 03/23/22 10:46 DCW [id number]) Lumbar Spine Range of Motion Lumbar Spine Active Percentage Testing Position Standing Flexion 100 Extension 100 Lateral Flexion Left 100 Lateral Flexion Right 100 Comments Mild discomfort with left lateral flexion PT-OP-L Special Tests Start: 03/23/22 10:41 Freq: Status: Active Protocol: Document 03/23/22 09:45 DCW (Rec: 03/23/22 10:46 DCW [id number]) Special Tests Lumbar Spine Special Tests Straight Leg Raise Test Results Negative Standing Flexion Test Results Negative Slump Test Results Positive L Manual Traction Test Results Negative Compression Test Results Negative A-P Shearing Test Results Negative Hip Special Tests Posterior Labral Test Test Results Negative Piriformis Test Results ++++ Left JANET Test Results Negative PT-OP-M Strength Start: 03/23/22 10:41 Freq: Status: Active Protocol: Document 03/23/22 09:45 DCW (Rec: 03/23/22 10:46 DCW [id number]) Hip Strength Hip Manual Muscle Testing Right Flexion (L2) 5 Normal Abduction 5 Normal Adduction 5 Normal External Rotation 5 Normal Internal Rotation 5 Normal Left Flexion (L2) 4+ Good+ Abduction 5 Normal Adduction 5 Normal External Rotation 4 Good Internal Rotation 4+ Good+ Knee Strength Knee Manual Muscle Testing Right Flexion (S2) 5 Normal Extension (L3) 5 Normal Left Flexion (S2) 5 Normal Extension (L3) 4+ Good+ Ankle/Foot Strength Ankle and Foot Manual Muscle Testing Right Dorsiflexion (L4) 5 Normal Plantarflexion (S1) 5 Normal Left Dorsiflexion (L4) 4 Good Plantarflexion (S1) 4+ Good+ Toe Strength Toe Manual Muscle Testing Right Great Toe Flexion 5 Normal Left Great Toe Extension 4 Good PT-OP-T Assessment and Plan Start: 03/23/22 10:41 Freq: Status: Active Protocol: Document 08/08/22 11:58 DCW (Rec: 08/08/22 11:58 DC [id number]) Physical Therapy Assessment Assessment Summary Assessment Pt canceled remaining visits three months ago, has not called for any follow-up visits. Will discharge at this time. Pt will require a new referral in order to return to skilled therapy.
== END 2022-08-09 11:52 | disposition home or self-care (01) ==
LOC: PHYS 09:00
PROVIDERS: Family Provider Family Medicine; PCP Family Medicine; Referring Provider Family Medicine; Visit Provider Family Medicine
DX: M54.50 Low back pain, unspecified (principal); M54.32 Sciatica, left side
CPT/HCPCS: 97110; 97140; 97161

== ENCOUNTER → 2022-05-18 16:14 | Outpatient (CLI) | payer OTHER, SELFPAY ==
--- NOTE | 2022-05-18 16:17 | DI.MRI.S_ITS ---
PROCEDURE: MR LUMBAR SPINE WO CON INDICATIONS: Left L5 radiculopathy TECHNIQUE: Noncontrast sagittal T1 spin echo and T2 fast echo, sagittal STIR, and T2 fast spin echo through the lumbar spine. In cases with scoliosis, additional coronal T2 fast spin echo may be performed. COMPARISON: [facility], CR, XR LUMBAR SPINE MIN 4V, 01/27/2022, 10:34. FINDINGS: Image quality: Excellent. Alignment and Curvature: There is minimal retrolisthesis seen at L1-L2. Bone Marrow: Marrow is of normal overall signal. No acute vertebral body compression fractures. Spinal Cord: Conus medullaris terminates at the T12-L1 level. Visualized cord demonstrates normal signal and size. Paraspinous Soft Tissues: No paravertebral masses. This patient has transitional lumbar anatomy. For the purposes of this examination, the level with the last well visualized disc space is considered to be L5-S1. By this numbering scheme, the L5 level is transitional and relatively highly sacralized, particularly on the right side. This numbering scheme is chosen to remain consistent with the plain film report dated 01/27/2022. T12-L1: The disc height and disk signal are well-preserved. Mild generalized disc bulge is seen. There is a slight central disc protrusion seen. No significant neural foraminal or central canal narrowing can be seen. L1-L2: A mild degree of loss of disc signal can be seen. The disc height is well preserved. Mild to moderate disc bulge is seen at this level. There is moderate right-sided and [id number] left-sided neural foraminal narrowing seen. Minimal central canal narrowing is seen. L2-L3: Normal appearance. L3-L4: The disc height is well-preserved. Loss of disc signal is seen at this level. Moderate generalized disc bulge is seen. Mild facet joint hypertrophy is seen. There is moderate to severe bilateral neural foraminal narrowing seen, with an associated a degree of compression seen upon the exiting nerve roots. Minimal central canal narrowing is seen. L4-L5: Moderate loss of disc height is seen. Loss of disc signal is seen. Moderate generalized disc bulge is seen. There is a mild central disc extrusion. Moderate facet joint hypertrophy is seen. There is moderate to severe bilateral neural foraminal narrowing seen, with an associated a degree of compression seen upon the exiting nerve roots. Mild central canal narrowing is seen. L5-S1: There is a transitional, rudimentary disc seen. There is [id number] left-sided and no right-sided neural foraminal narrowing. The central canal is widely patent. IMPRESSION: Multiple levels of lumbar spine degenerative change are seen, which are worst at the L4-L5 level. Transitional lumbar anatomy, with a relatively highly sacralized L5 level and a transitional disc at L5-S1. Dictated by: Niels Cabezas M.D. on 05/18/2022 at 15:54 Approved by: Niels Cabezas M.D. on 05/18/2022 at 15:58
== END ==
PROVIDERS: Family Provider Family Medicine; PCP Family Medicine; Referring Provider Physical Medicine & Rehabilitation; Visit Provider Physical Medicine & Rehabilitation
DX: M51.17 Intervertebral disc disorders with radiculopathy, lumbosacral region (principal); M47.27 Other spondylosis with radiculopathy, lumbosacral region
CPT/HCPCS: 72148

== ENCOUNTER → 2022-06-20 13:12 | Outpatient (CLI) | payer OTHER, SELFPAY ==
[2022-06-20 14:21] LABS: COVID19 -Nasal RAPID Negative (Negative)
== END ==
PROVIDERS: Family Provider Family Medicine; PCP Family Medicine; Referring Provider Physical Medicine & Rehabilitation; Visit Provider Physical Medicine & Rehabilitation
DX: Z20.822 Contact with and (suspected) exposure to COVID-19 (principal)
CPT/HCPCS: 87635; C9803

== ENCOUNTER 2022-06-21 08:47 | Outpatient (CLI) | payer OTHER, SELFPAY ==
[2022-06-21] VITALS (8 sets, daily range): BP systolic 119–147; BP diastolic 76–92; PULSE 69–79; RESP 12–22; TEMP 36.1; O2SAT 98–100
--- NOTE | 2022-06-21 08:50 | DI.RAD.S_ITS ---
PROCEDURE: PAIN L/S TRANSFORAMINAL INJECT INDICATIONS: SPONDYLOSIS COMPARISON: [facility], MR, MR LUMBAR SPINE WO CON, 05/18/2022, 16:24. [facility], CR, XR LUMBAR SPINE MIN 4V, 01/27/2022, 10:34. FINDINGS: Fluoroscopic spot filming was performed to verify placement of a spinal needle at the L4-L5 level, as labeled on the films. Appropriate location of the needle tip was confirmed by injection of iodinated contrast. IMPRESSION: Intraprocedural examination within normal limits. Dictated by: Niels Cabezas M.D. on 06/21/2022 at 13:04 Approved by: Niels Cabezas M.D. on 06/21/2022 at 13:04
[2022-06-21] MEDS: MIDAZOLAM 2 MG/2 ML VIAL IV (10:05)
[2022-06-21] MEDS: IOPAMIDOL 15 ML VIAL 3 ML INJ (10:09)
[2022-06-21] MEDS: BETAMETHASONE 30 MG/5 ML MDV 6 MG INJ (10:10)
[2022-06-21] MEDS: BUPIVACAINE 0.25% (PF) VIAL 2 ML INJ (10:10)
[2022-06-21] MEDS: DEXAMETHASONE 10 MG/ML VIAL 20 MG INJ (10:11)
--- NOTE | 2022-06-21 10:20 | P.PCN_ITS ---
Date/Time/Diagnoses Date of procedure: 06/21/22 Time of procedure: 10:20 Pre-procedure diagnosis: 1. FORAMINAL STENOSIS WITH LE SYMPTOMS Post-procedure diagnosis: same Procedure Notes Procedure: 1. FLUOROSCOPICALLY GUIDED CONTRAST CONTROLLED TRANSFORAMINAL EPIDURAL STEROID INJECTION - LEFT L4/5 Indications: Navid is referred by Dr. Crawford for treatment of Foraminal Stenosis with Left LE Symptoms Physician: Juwan Gil Total Fluoroscopy time (seconds): 11 Total sedation minutes: 12 Complications: none Procedure in detail & Post-procedure care: FINDINGS Foraminal Nerve Root Compression secondary to disc disease and facet hypertrophy DESCRIPTION OF PROCEDURE Following review of allergy and review of potential side effects and complications, including, but not necessarily limited to, infection, allergic reaction, local tissue breakdown, stroke, temporary or permanent nerve injury, paralysis, and possible , the patient indicated that the patient understood and agreed to proceed. An informed consent document was signed by the patient, witnessed by a nurse, and placed in the patient's chart. Additionally, other treatment options including medications, modalities, and physical therapy were reviewed with the patient. After review of previous anaesthesic history and IV conscious sedation the patient was deemed safe to proceed with today?s procedure with IV conscious sedation as ASA class II designation. Safety time-out was performed to confirm patient ID, procedure to be performed and site of procedure. IV sedation was accomplished with a combination of 2mg of Versed administered by the RN after DO order, titrated to patient comfort during the course of the procedure while the patient remained responsive to all verbal commands In the prone position following sterile prep and drape of the lumbar region, the left L4/5 posterior neuroforamen was identified fluoroscopically. The skin was anesthetized via a 25-gauge 1.5-inch needle with 1% lidocaine solution. At this point, a 25-gauge 3.5-inch spinal needle was atraumatically introduced and advanced under fluoroscopic guidance through the posterior left L4/5 neuroforamen to approximately the anterior aspect of the canal. Depth was confirmed on lateral view. Following negative aspiration, injection of approximately 1.5 cc of Isovue 200 under live fluoroscopy in the AP view confirmed excellent flow along the nerve root, into the epidural space without vascular or intrathecal uptake observed Radiological data, including multiple fluoroscopic views of the lumbosacral spine, reveal a spinal needle at the left L4/5 posterior neuroforamen. Subsequent views show flow of contrast material flowing superiorly and inferiorly along the nerve root confirming epidural flow. Subsequently, a test dose of 1.5 cc of 1% lidocaine solution was administered and patient was observed for two minutes for signs or symptoms of complications, including abdominal pain, shortness of breath, bilateral upper or lower extremity weakness, nausea and vomiting, prior to steroid injection. At this point, a total of 3cc or 20mg of dexamethasone and 6mg of betamethasone was injected without incident. The procedure tolerated the procedure well without signs or symptoms of complications prior to transfer to the recovery area continued monitoring without incident. The patient was then transferred to the recovery area where they were observed for an appropriate time after the injection. The patient reported a VAS score of 7 prior to the procedure and a post- procedure VAS of 0. POST OP INSTRUCTIONS The patient was provided a Pain Log to continue to record their response to the target-specific procedure prior to follow-up visit with their referring physician. Additionally, specific post-injection care instructions and a contact number to our office were provided if concerns arise regarding possible complications associated with the procedure are suspected.
== END 2022-06-21 10:38 | disposition home or self-care (01) ==
PROVIDERS: Family Provider Family Medicine; PCP Family Medicine; Referring Provider Physical Medicine & Rehabilitation; Visit Provider Physical Medicine & Rehabilitation
DX: M48.061 Spinal stenosis, lumbar region without neurogenic claudication (principal); M51.16 Intervertebral disc disorders with radiculopathy, lumbar region
CPT/HCPCS: 64483; 99152; J0702; J1100; J2250; J3490

== ENCOUNTER → 2022-08-25 08:22 | Outpatient (CLI) | payer OTHER, SELFPAY | PROVIDERS: Family Provider Family Medicine; PCP Family Medicine; Referring Provider Physical Medicine & Rehabilitation; Visit Provider Physical Medicine & Rehabilitation | DX: M54.17 Radiculopathy, lumbosacral region (principal); M51.27 Other intervertebral disc displacement, lumbosacral region | CPT/HCPCS: 95886; 95910 ==

== ENCOUNTER → 2023-12-18 10:35 | Outpatient (CLI) | payer OTHER, SELFPAY ==
--- NOTE | 2023-12-18 10:36 | DI.RAD.S_ITS ---
PROCEDURE: XR WRIST RT MIN 3V INDICATIONS: R wrist injury, pain on ulnar aspect. TECHNIQUE: For views of the wrist were acquired. COMPARISON: None. FINDINGS: Bones: Minimally displaced ulnar styloid process fracture.. No suspicious bony lesions. Soft tissues: No suspicious soft tissue calcifications. IMPRESSION: Ulnar styloid process fracture. Dictated by: Hanna Arreola MD, PhD on 12/18/2023 at 11:07 Approved by: Hanna Arreola MD, PhD on 12/18/2023 at 11:07
== END ==
PROVIDERS: Family Provider Family Medicine; PCP Family Medicine; Referring Provider Physician Assistant Surgical; Visit Provider Physician Assistant Surgical
DX: S52.614A Nondisplaced fracture of right ulna styloid process, initial encounter for closed fracture (principal); X58.XXXA Exposure to other specified factors, initial encounter
CPT/HCPCS: 73110